=== PATIENT | female | born 1975 | race Caucasian/White ===

== ENCOUNTER 2016-12-04 05:29 | Day surgery (SDC) | payer OTHER ==
[~2016-12-04] VITALS: Ht 172.7 cm; Wt 54.0 kg
[~2016-12-04 05:29] MED LIST: CYTOTEC200 MCG PO; SPRINTEC1 EACH PO
[2016-12-04 06:49] VITALS: BP 111/74
[2016-12-04 09:20] VITALS: BP 139/68
[2016-12-04 10:30] VITALS: BP 132/68
== END 2016-12-04 10:30 | disposition home or self-care (01) ==
LOC: SDC 05:29
DX: D25.0 Submucous leiomyoma of uterus (principal); D25.1 Intramural leiomyoma of uterus; N92.0 Excessive and frequent menstruation with regular cycle; N94.6 Dysmenorrhea, unspecified; Z88.0 Allergy status to penicillin; Z83.49 Family history of other endocrine, nutritional and metabolic diseases; Z80.49 Family history of malignant neoplasm of other genital organs; Z80.3 Family history of malignant neoplasm of breast; Z82.3 Family history of stroke; Z83.3 Family history of diabetes mellitus
CPT/HCPCS: 88305; J0690; J1100; J1885; J2175; J2405; J2765; J3010; Q0175